=== PATIENT | male | born 1985 | race Caucasian/White ===

== ENCOUNTER → 2017-01-16 | Day surgery (SDC) | payer OTHER ==
[~2017-01-16] VITALS: Ht 167.6 cm; Wt 90.7 kg
[~2017-01-16] MED LIST: BUPIVACAINE HCL 0.25% 30 ML VIAL As Ordered ONE; BUPIVACAINE HCL 0.25% 30 ML VIAL XX ONE; D5W/0.2% SODIUM CHLORIDE 250 ML IV SCH; GLYCOPYRROLATE INJ 0.2 MG/ML 2 ML VIAL As Ordered ONE; KETOROLAC 60 MG/2 ML VIAL (J1885) As Ordered ONE; LIDOCAINE 1% MDV 20ML VIAL As Ordered ONE; LIDOCAINE 2% INJ 100 MG/5 ML SDV (FOR ANES.) As Ordered ONE; LR 1,000 ML IV SCH; MEPERIDINE INJ 25 MG/ML VIAL (J2175) IV PRN; METOCLOPRAMIDE INJ 10MG/2ML VIAL (J2765) IV PRN; MIDAZOLAM INJ 2 MG/2 ML VIAL (J2250) As Ordered ONE; NEOSTIGMINE 1MG/ML 5 ML SYRINGE (J2710) As Ordered ONE; NORCO, ANEXSIA 5/325MG TABLET (HYDROcodone/ACETAMINOPHEN) PO PRN; ONDANSETRON 4MG/2ML VIAL (J2405) As Ordered ONE; ONDANSETRON 4MG/2ML VIAL (J2405) IV PRN; PROPOFOL 200 MG/20 ML VIAL As Ordered ONE; fentaNYL 250 MCG/5 ML INJECTION (J3010) As Ordered ONE
[2017-01-16] MEDS: PERCOCET 5MG/325MG TAB PO PRN ×2 (18:24→18:52)
[2017-01-16] MEDS: fentaNYL 100 MCG/2 ML INJECTION (J3010) IV PRN ×2 (18:50→19:08)
[2017-01-16 20:40] VITALS: BP 137/73
--- NOTE | 2017-01-18 13:56 | RO ---
DATE OF PROCEDURE: 01/16/2017 PREOPERATIVE DIAGNOSIS: Right inguinal hernia. POSTOPERATIVE DIAGNOSIS: Direct right inguinal hernia. PROCEDURE PERFORMED: Right inguinal herniorrhaphy with ultra Pro mesh. SURGEON: Dr. Irvin PATIENT SERVICE TECHNICIAN PST: SOHAIL Lilly ANESTHESIA: General. INDICATIONS FOR PROCEDURE: The patient is a 31-year-old man who presented to the office with perhaps a year of some intermittent right inguinal area pain, particularly with strenuous activity. This has been more pronounced over the last several months. An ultrasound was interpreted as showing a protrusion of bowel into the inguinal canal with Valsalva. A definite hernia was not palpable on physical exam, though he had tenderness in the area of the external ring on the right side. He is now for a right inguinal herniorrhaphy. OPERATIVE PROCEDURE: The patient was placed under general anesthesia using a LMA. The patient's lower abdomen, groins and genitalia were prepped and draped in sterile fashion. An approximately 8-9 cm oblique right lower quadrant skin incision was made following the course of the inguinal canal. This was deepened through the subcutaneous tissues. The external oblique was opened in the direction of its fibers into the external ring. During the course of the procedure, the patient was converted from an LMA to endotracheal intubation at the discretion of anesthesia. The spermatic cord was narrow and was dissected free at the pubic tubercle and elevated with a Eulogio. Inspection of the cord revealed no evidence of an indirect inguinal hernia sac. There was a gap approximately a centimeter and half in width in the inguinal floor extending essentially from the inferior epigastric vessel to the region of the pubic tubercle. There was a bulging of fibrofatty tissue along this ridge in his inguinal floor. This seems to represent a mild direct hernia. I elected to treat this as a hernia. Therefore the inguinal floor was reinforced in a Bassini repair fashion with interrupted simple sutures of 0 Ethibond. A 6 x 11 cm piece of ultra Pro mesh was then selected. This was trimmed to fit the inguinal floor. It was sutured at the pubic tubercle with a #3-0 Prolene, which was then carried along the lateral border of the mesh suturing this to the shelving edge of the inguinal ligament. The medial portion of the mesh was tacked down with interrupted simple sutures of #3-0 Vicryl. The tails of the mesh were overlapped lateral to the spermatic cord and sutured in place with #3-0 Vicryl. This appeared to give a nice reconstruction of the inguinal floor. Some 0.25% Marcaine was infiltrated into the inguinal floor and into the (cut off). The external oblique was closed with a running suture of #0 Vicryl. The subcutaneous tissues were closed with chromic. Some additional 0.25 percent Marcaine was infiltrated along the skin edges and into the subcutaneous tissues. The skin edges were approximated with a running subcuticular #4-0 Vicryl and Steri-Strips. A light dressing was applied. The patient tolerated the procedure well without apparent complication. He was awakened in the operating room, extubated and moved to the recovery room in stable condition.
== END | disposition home or self-care (01) ==
LOC: M SDC 13:03
PROVIDERS: ATTEND Surgery
DX: K40.90 Unilateral inguinal hernia, without obstruction or gangrene, not specified as recurrent (principal); R06.83 Snoring; Z88.0 Allergy status to penicillin; Z72.0 Tobacco use
CPT/HCPCS: 49505; C1781; J1885; J2250; J2405; J2710; J3010